=== PATIENT | female | born 1980 | race Caucasian/White ===

== ENCOUNTER → 2019-05-14 | Outpatient (CLI) | payer SELFPAY ==
--- NOTE | 2019-05-14 15:21 | RADIOLOGY REPORT (SQ) ---
EXAM DESCRIPTION: U/S OB 14+ TRNABD 1GES W/O DOP COMPLETED DATE/TIME: 05/14/2019 2:48 pm REASON FOR STUDY: Z34.82 ENCOUNTER FOR SUPRVSN OF NORMAL , SECOND TRIMESTER Z34.82 ENCOUNT ER FOR SUPRVSN OF NORMAL , SECOND TRI COMPARISON: None. TECHNIQUE: Static and Dynamic grayscale imaging performed of gravid uterus using transabdominal appr oach. Additional selected color Doppler and spectral images recorded. All stored on PACS. LIMITATIONS: None. FINDINGS: FETUSES SEEN:1 EGA: 19 weeks 4 days Calculated using BPD,FL,HC,AC documented on images. No discrepancy with clinica l dates. MENDEZ: 10/04/2019 EFW: 296+/- 44 grams PERCENTILE: Not calculated. LVP: 2.9 CM PLACENTA: POSTERIOR GRADE 1 PRESENTATION: Breech. ANATOMY: HEART RATE: 130 beats per minute. FOUR CHAMBER HEART: Visualized. THREE VESSEL CORD: Yes. CORD INSERTION: Visualized. KIDNEYS AND BLADDER: Visualized. Appear normal. STOMACH: Visualized. Appears normal. SPINE: Normal as visualized. BRAIN AND LATERAL VENTRICLES: Visualized. Appear normal. OTHER: No other significant finding. MATERNAL ADNEXA: Maternal ovaries not visualized. CERVICAL LENGTH: 3.2 cm. Closed. OTHER: No other significant finding. IMPRESSION: LIVING INTRAUTERINE . ESTIMATED GESTATIONAL AGE 19 weeks 4 days. NO VISUALIZED ANOMALIES. Trimester of : Second trimester - 13 weeks 1 day to 27 weeks 6 days. TECHNICAL DOCUMENTATION: JOB ID: [id number] [employer]- All Rights Reserved Reading location - IP/workstation name: [email or web address]
== END ==
LOC: RAD 13:41
PROVIDERS: ATTEND Midwife
DX: Z34.82 Encounter for supervision of other normal pregnancy, second trimester (principal)
CPT/HCPCS: 76805

== ENCOUNTER 2019-05-18 20:17 | Outpatient (CLI) | payer MEDICAID ==
[2019-05-18 21:22] LABS: AMORPHOUS SEDIMENT,URINE TRACE /HPF; APPEARANCE,URINE CLOUDY; BILIRUBIN,URINE NEGATIVE (NEGATIVE); COLOR,URINE AMBER; GLUCOSE, URINE NEGATIVE (NEGATIVE); KETONES,URINE NEGATIVE (NEGATIVE); LEUKOCYTE ESTERASE,URINE NEGATIVE (NEGATIVE); NITRITE,URINE NEGATIVE (NEGATIVE); PROTEIN,URINE NEGATIVE (NEGATIVE); URINE SPECIFIC GRAVITY 1.025; UROBILINOGEN,URINE NEGATIVE mg/dL (<2.0)
[2019-05-18 21:32] LABS: URINE AMPHETAMINES SCREEN NEGATIVE; URINE BARBITURATES SCREEN NEGATIVE; URINE COCAINE SCREEN NEGATIVE; URINE MARIJUANA (THC) SCREEN NEGATIVE; URINE METHADONE SCREEN NEGATIVE; URINE PHENCYCLIDINE SCREEN NEGATIVE
[2019-05-18 21:37] LABS: URINE BENZODIAZEPINES SCREEN UNCONFIRMED POSITIVE
[2019-05-18] MEDS ORDERED: ACETAMINOPHEN 325 MG TABLET PO ONE (21:50)
[2019-05-18] MEDS ORDERED: ACETAMINOPHEN 325 MG TABLET ONE (21:52)
== END 2019-05-18 22:06 | disposition home or self-care (01) ==
LOC: LC 20:17
PROVIDERS: ATTEND Obstetrics & Gynecology
DX: O47.1 False labor at or after 37 completed weeks of gestation (principal); O26.892 Other specified pregnancy related conditions, second trimester; E86.0 Dehydration; R51 Headache; H92.09 Otalgia, unspecified ear; R42 Dizziness and giddiness; M54.2 Cervicalgia; R07.0 Pain in throat; Z3A.20 20 weeks gestation of pregnancy
CPT/HCPCS: 81001; 80307; G0480 ×2; J3490

== ENCOUNTER 2019-07-05 13:08 | Outpatient (CLI) | payer MEDICAID ==
[2019-07-05 13:37] LABS: APPEARANCE,URINE CLEAR; BILIRUBIN,URINE NEGATIVE (NEGATIVE); COLOR,URINE STRAW; GLUCOSE, URINE NEGATIVE (NEGATIVE); KETONES,URINE NEGATIVE (NEGATIVE); LEUKOCYTE ESTERASE,URINE NEGATIVE (NEGATIVE); NITRITE,URINE NEGATIVE (NEGATIVE); PROTEIN,URINE NEGATIVE (NEGATIVE); UROBILINOGEN,URINE NEGATIVE mg/dL (<2.0)
[2019-07-05 13:39] LABS: AMORPHOUS SEDIMENT,URINE TRACE /HPF
[2019-07-05 13:41] LABS: URINE SPECIFIC GRAVITY 1.014
[2019-07-05 13:54] LABS: URINE AMPHETAMINES SCREEN NEGATIVE; URINE BARBITURATES SCREEN NEGATIVE; URINE BENZODIAZEPINES SCREEN NEGATIVE; URINE COCAINE SCREEN NEGATIVE; URINE MARIJUANA (THC) SCREEN NEGATIVE; URINE METHADONE SCREEN NEGATIVE; URINE PHENCYCLIDINE SCREEN NEGATIVE
[2019-07-05] MEDS ORDERED: METOCLOPRAMIDE HCL ORAL SOLN 10 MG/10 ML UDCUP PO ONE (14:47)
[2019-07-05] MEDS ORDERED: LIDOCAINE 2% VISCOUS SOLN 20 ML UDCUP PO ONE (14:47)
[2019-07-05] MEDS ORDERED: MAG HYDROX/AL HYDROX/SIMETH SUSP 30 ML UDCUP PO ONE (14:47)
--- NOTE | 2019-07-05 15:09 | RADIOLOGY REPORT (SQ) ---
EXAM DESCRIPTION: U/S ABDOMEN LIMITED W/O DOP COMPLETED DATE/TIME: 07/05/2019 2:43 pm REASON FOR STUDY: Assess gallbladder, Midsternal pain COMPARISON: None. TECHNIQUE: Dynamic and static grayscale images acquired of the abdomen and recorded on PACS. Additio nal selected color Doppler and spectral images recorded. LIMITATIONS: None. FINDINGS: PANCREAS: No masses. Visualized pancreatic duct normal caliber. LIVER: No masses. Echotexture normal. LIVER VASCULATURE: Normal directional flow of the main portal vein and hepatic veins. GALLBLADDER: Contracted. No shadowing stones. Normal wall thickness. No pericholecystic fluid. ULTRASOUND-DETECTED HARRIS'S SIGN: Negative. INTRAHEPATIC DUCTS AND COMMON DUCT: CBD and intrahepatic ducts normal caliber. No filling defects. INFERIOR VENA CAVA: Normal flow. AORTA: No aneurysm identified. RIGHT KIDNEY: Normal size. Normal echogenicity. No solid or suspicious masses. No hydronephros is. No calcifications. PERITONEAL AND RIGHT PLEURAL SPACE: No ascites or effusions. OTHER: No other significant findings. IMPRESSION: NO ACUTE FINDINGS. TECHNICAL DOCUMENTATION: JOB ID: [id number] [employer]- All Rights Reserved Reading location - IP/workstation name: [email or web address]
[2019-07-05] MEDS ORDERED: MAG HYDROX/AL HYDROX/SIMETH SUSP 30 ML UDCUP ONE (15:36)
== END 2019-07-05 15:58 | disposition home or self-care (01) ==
LOC: LC 13:08
PROVIDERS: ATTEND Obstetrics & Gynecology
PROC: 4A1HXCZ Monitoring of Products of Conception, Cardiac Rate, External Approach (ICD-10-PCS; principal; 2019-07-05)
DX: Z34.92 Encounter for supervision of normal pregnancy, unspecified, second trimester (principal)
CPT/HCPCS: 81001; 80307; 76705; 59899; J3490 ×3

== ENCOUNTER 2019-09-25 22:37 | Outpatient (CLI) | payer MEDICAID ==
[2019-09-25 23:14] LABS: APPEARANCE,URINE CLEAR; BILIRUBIN,URINE NEGATIVE (NEGATIVE); COLOR,URINE YELLOW; GLUCOSE, URINE NEGATIVE (NEGATIVE); KETONES,URINE NEGATIVE (NEGATIVE); LEUKOCYTE ESTERASE,URINE NEGATIVE (NEGATIVE); NITRITE,URINE NEGATIVE (NEGATIVE); PROTEIN,URINE 30 mg/dL (NEGATIVE); URINE SPECIFIC GRAVITY 1.024
[2019-09-25 23:31] LABS: URINE AMPHETAMINES SCREEN NEGATIVE; URINE BARBITURATES SCREEN NEGATIVE; URINE BENZODIAZEPINES SCREEN NEGATIVE; URINE COCAINE SCREEN NEGATIVE; URINE MARIJUANA (THC) SCREEN NEGATIVE; URINE METHADONE SCREEN NEGATIVE; URINE PHENCYCLIDINE SCREEN NEGATIVE
--- NOTE | 2019-09-26 00:37 | Non Stress Test Report ---
Non Stress Test Datetime Report Generated by CPN: 09/26/2019 00:37 DEMOGRAPHIC EGA NST: 38.6 INDICATION Indication for Study (NST) Other: LC MONITORING Monitor Explained: Monitor Explained; Test Explained; Patient Verbalized Understanding Time on Monitor: 09/26/2019 22:52 Time off Monitor: 09/26/2019 23:15 NST Duration: 23 NST INTERVENTIONS NST Interventions: PO Hydration Physician Notified NST: Dr. Villa BABY A: [id number] BABY A Movement : Present Contraction Frequency : 3-5 FHR Baseline : 135 Accelerations : 15X15 Decelerations : None Variability : Moderate 6-25bpm NST Review: Meets Criteria for Reactive NST NST Review and Verified By : Laura Banks RN Results: Reactive NST REPORT Report Trigger: Send Report
== END 2019-09-26 00:32 | disposition home or self-care (01) ==
LOC: LC 22:37
PROVIDERS: ATTEND Obstetrics & Gynecology Gynecology
PROC: 4A1HXCZ Monitoring of Products of Conception, Cardiac Rate, External Approach (ICD-10-PCS; principal; 2019-09-25)
DX: O09.523 Supervision of elderly multigravida, third trimester (principal); O99.333 Smoking (tobacco) complicating pregnancy, third trimester; F17.210 Nicotine dependence, cigarettes, uncomplicated; Z3A.38 38 weeks gestation of pregnancy
CPT/HCPCS: 59025; 80307; 81005

== ENCOUNTER 2019-10-09 19:03 | Outpatient (CLI) | payer MEDICAID ==
[2019-10-09 19:56] LABS: APPEARANCE,URINE CLEAR; BILIRUBIN,URINE NEGATIVE (NEGATIVE); COLOR,URINE YELLOW; GLUCOSE, URINE 150 mg/dL (NEGATIVE); KETONES,URINE NEGATIVE (NEGATIVE); LEUKOCYTE ESTERASE,URINE NEGATIVE (NEGATIVE); NITRITE,URINE NEGATIVE (NEGATIVE); PROTEIN,URINE NEGATIVE (NEGATIVE); URINE SPECIFIC GRAVITY 1.014; UROBILINOGEN,URINE NEGATIVE mg/dL (<2.0)
[2019-10-09 20:10] LABS: URINE AMPHETAMINES SCREEN NEGATIVE; URINE BARBITURATES SCREEN NEGATIVE; URINE BENZODIAZEPINES SCREEN NEGATIVE; URINE COCAINE SCREEN NEGATIVE; URINE METHADONE SCREEN NEGATIVE; URINE PHENCYCLIDINE SCREEN NEGATIVE
[2019-10-09 20:16] LABS: URINE MARIJUANA (THC) SCREEN UNCONFIRMED POSITIVE
== END 2019-10-09 22:26 | disposition home or self-care (01) ==
LOC: LC 19:03
PROVIDERS: ATTEND Student in an Organized Health Care Education/Training Program
PROC: 4A1HXCZ Monitoring of Products of Conception, Cardiac Rate, External Approach (ICD-10-PCS; principal; 2019-10-09)
DX: O48.0 Post-term pregnancy (principal); O09.523 Supervision of elderly multigravida, third trimester; Z3A.40 40 weeks gestation of pregnancy
CPT/HCPCS: 59025; 81005; 80307; 84112; G0480 ×2; 80349

== ENCOUNTER 2019-10-10 06:07 | Inpatient (IN) | payer MEDICAID ==
--- NOTE | 2019-10-10 06:09 | Non Stress Test Report ---
Non Stress Test Datetime Report Generated by CPN: 10/10/2019 06:09 DEMOGRAPHIC EGA NST: 40.5 INDICATION Indication for Study (NST) Other: labor check URINE RESULTS Urine Protein, NST: Negative Urine Ketones - NST: Negative Urine Glucose - NST: Negative Urine Blood - NST: Positive MONITORING Monitor Explained: Monitor Explained; Test Explained; Patient Verbalized Understanding Time on Monitor: 10/09/2019 19:15 Time off Monitor: 10/09/2019 19:40 NST Duration: 25 NST INTERVENTIONS NST Interventions: PO Hydration Physician Notified NST: Dr. Hudson BABY A: [id number] BABY A Movement : Present Contraction Frequency : irregular FHR Baseline : 145 Accelerations : 15X15 Decelerations : None Variability : Moderate 6-25bpm NST Review: Meets Criteria for Reactive NST NST Review and Verified By : willi Yeung rn NST Results: Reactive NST REPORT Report Trigger: Send Report
[2019-10-10] MEDS ORDERED: OXYTOCIN/NORMAL SALINE 20 UNIT/1,000 ML RTUINJ IV PRN ×2 (06:16→15:07)
[2019-10-10] MEDS ORDERED: RINGERS SOLUTION,LACTATED 300 ML IV ONE (06:16)
[2019-10-10] MEDS: RINGERS SOLUTION,LACTATED 1,000 ML IV PRN ×2 (06:30→11:44)
[2019-10-10] MEDS ORDERED: MISOPROSTOL 0.2 MG TABLET ONE (06:32)
[2019-10-10] MEDS ORDERED: LIDOCAINE 1% INJ-PF (10 MG/ML) 30 ML SDV ONE (06:32)
[2019-10-10] MEDS ORDERED: OXYTOCIN/NORMAL SALINE 20 UNIT/1,000 ML RTUINJ ONE (06:32)
[2019-10-10] MEDS ORDERED: OXYTOCIN 10 UNIT/ML VIAL ONE (06:32)
[2019-10-10 07:22] LABS: ABSOLUTE EOSINOPHILS # (AUTO) 0.1 10^3/uL (0.0-0.6); ABSOLUTE LYMPHOCYTES (AUTO) 1.7 10^3/uL (0.5-4.7); ABSOLUTE MONOCYTES (AUTO) 0.9 10^3/uL (0.1-1.4); ABSOLUTE NEUT (AUTO) 7.6 10^3/uL (1.7-8.2); BASOPHILS % (AUTO) 0.4 % (0-2); EOSINOPHILS % (AUTO) 0.7 % (0-6); HEMATOCRIT 35.4 % (36.0-47.0); HEMOGLOBIN 12.2 g/dL (12.0-15.5); LYMPHOCYTES % (AUTO) 16.5 % (13-45); MEAN CORPUSCULAR HEMOGLOBIN 32.8 pg (27.0-33.4); MEAN CORPUSCULAR HGB CONC 34.4 g/dL (32.0-36.0); MEAN CORPUSCULAR VOLUME 95 fl (80-97); MONOCYTES % (AUTO) 8.9 % (3-13); PLATELET COUNT 146 10^3/uL (150-450); RED BLOOD COUNT 3.72 10^6/uL (3.72-5.28); RED CELL DISTRIBUTION WIDTH 12.5 % (11.5-14.0); SEGMENTED NEUTROPHILS % (AUTO) 73.5 % (42-78); TOTAL CELLS COUNTED % (AUTO) 100 %; WHITE BLOOD COUNT 10.4 10^3/uL (4.0-10.5)
[2019-10-10 07:30] LABS: APPEARANCE,URINE CLOUDY; BILIRUBIN,URINE NEGATIVE (NEGATIVE); COLOR,URINE YELLOW; GLUCOSE, URINE 50 mg/dL (NEGATIVE); KETONES,URINE NEGATIVE (NEGATIVE); LEUKOCYTE ESTERASE,URINE TRACE (NEGATIVE); NITRITE,URINE NEGATIVE (NEGATIVE); PROTEIN,URINE NEGATIVE (NEGATIVE); URINE SPECIFIC GRAVITY 1.015; UROBILINOGEN,URINE NEGATIVE mg/dL (<2.0)
[2019-10-10 07:46] LABS: URINE AMPHETAMINES SCREEN NEGATIVE; URINE BARBITURATES SCREEN NEGATIVE; URINE BENZODIAZEPINES SCREEN NEGATIVE; URINE COCAINE SCREEN NEGATIVE; URINE METHADONE SCREEN NEGATIVE; URINE PHENCYCLIDINE SCREEN NEGATIVE
[2019-10-10 07:59] LABS: URINE MARIJUANA (THC) SCREEN UNCONFIRMED POSITIVE
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
[2019-10-10] MEDS ORDERED: NALBUPHINE HCL INJ 10 MG/1 ML AMPULE ONE (08:44)
[2019-10-10] MEDS ORDERED: EPHEDRINE SULFATE INJ 50 MG/1 ML AMPULE ONE (11:20)
[2019-10-10] MEDS ORDERED: FENTANYL CITRATE INJ/PF 100 MCG/2 ML AMPUL ONE (11:20)
[2019-10-10] MEDS ORDERED: PHENYLEPHRINE HCL INJ/PF 10 MG/1 ML SDV ONE ×2 (11:20→12:40)
[2019-10-10] MEDS ORDERED: FENTANYL/BUPIVACAINE/NS/PF 300 MCG/150 ML RTUINJ EPI ONE (11:21)
[2019-10-10] MEDS ORDERED: BUPIVACAINE HCL 0.25 % INJ/PF (2.5 MG/1 ML) 30 ML VIAL ONE (11:21)
[2019-10-10] MEDS ORDERED: ZOLPIDEM TARTRATE 5 MG TABLET PO PRN (15:07)
[2019-10-10] MEDS ORDERED: BENZOCAINE/MENTHOL AEROSOL SPRAY 56 ML TOP PRN (15:07)
[2019-10-10] MEDS ORDERED: MEASLES,MUMPS&RUBELLA VACC/PF 0.5 ML VIAL SUBCUT PRN (15:07)
[2019-10-10] MEDS ORDERED: PROMETHAZINE HCL 25 MG SUPP.RECT PR PRN (15:07)
[2019-10-10] MEDS ORDERED: ACETAMINOPHEN 650 MG SUPP.RECT PR PRN (15:07)
[2019-10-10] MEDS ORDERED: PROMETHAZINE HCL INJ 25 MG/1 ML VIAL IV PRN (15:07)
[2019-10-10] MEDS ORDERED: PROMETHAZINE HCL 25 MG TABLET PO PRN (15:07)
[2019-10-10] MEDS ORDERED: MAGNESIUM HYDROXIDE SUSP 30 ML UDCUP PO PRN (15:07)
[2019-10-10] MEDS ORDERED: ACETAMINOPHEN WITH CODEINE #3 TABLET PO PRN (15:07)
[2019-10-10] MEDS ORDERED: DIPH/PERTUSS(ACELL)/TETANUS VAC/PF 0.5 ML SYR (>=10YO) IM PRN (15:07)
[2019-10-10] MEDS ORDERED: PSEUDOEPHEDRINE HCL 30 MG TABLET PO PRN (15:07)
[2019-10-10] MEDS ORDERED: NA PHOS,M-B/NA PHOS,DI-BA (ADULT) 133 ML ENEMA PR PRN (15:07)
[2019-10-10] MEDS ORDERED: DIPHENHYDRAMINE HCL 25 MG CAPSULE PO PRN (15:07)
[2019-10-10] MEDS ORDERED: GLYCERIN/WITCH HAZEL LEAF 1 EACH MED..WIPE TP PRN (15:07)
[2019-10-10] MEDS ORDERED: DIBUCAINE 1% OINTMENT 28 GM TP PRN (15:07)
[2019-10-10] MEDS ORDERED: ACETAMINOPHEN WITH CODEINE #3 TABLET ONE (15:08)
--- NOTE | 2019-10-10 15:29 | Warning Signs in Babies ---
VOD Warning Signs Datetime Report Generated by N: 10/10/2019 15:28 VOD#608 -Warning Signs in Babies: Viewed with Parent(s)/Family (10/10/2019 15:00:Diandra Mclean RN)
[2019-10-10] MEDS: DOCUSATE SODIUM 100 MG CAPSULE PO SCH (18:45)
[2019-10-10] MEDS: FERROUS SULFATE 325 MG TABLET PO SCH (18:45)
[2019-10-10] MEDS: ACETAMINOPHEN WITH CODEINE #3 TABLET PO PRN (19:33)
[2019-10-10] MEDS: IBUPROFEN 800 MG TABLET PO SCH (21:31)
[2019-10-10] MEDS: FAMOTIDINE 20 MG TABLET PO SCH (21:32)
[2019-10-11] MEDS: IBUPROFEN 800 MG TABLET PO SCH ×3 (05:46→21:52)
[2019-10-11 07:35] LABS: HEMATOCRIT 33.4 % (36.0-47.0); HEMOGLOBIN 11.5 g/dL (12.0-15.5); MEAN CORPUSCULAR HEMOGLOBIN 32.7 pg (27.0-33.4); MEAN CORPUSCULAR HGB CONC 34.4 g/dL (32.0-36.0); MEAN CORPUSCULAR VOLUME 95 fl (80-97); PLATELET COUNT 133 10^3/uL (150-450); RED BLOOD COUNT 3.51 10^6/uL (3.72-5.28); RED CELL DISTRIBUTION WIDTH 12.9 % (11.5-14.0); WHITE BLOOD COUNT 13.9 10^3/uL (4.0-10.5)
[2019-10-11] MEDS: ACETAMINOPHEN WITH CODEINE #3 TABLET PO PRN ×2 (08:42→16:40)
[2019-10-11] MEDS: FAMOTIDINE 20 MG TABLET PO SCH ×2 (10:34→21:52)
[2019-10-11] MEDS: PRENATAL VITAMIN W DHA CAPSULE PO SCH (10:34)
[2019-10-11] MEDS: DOCUSATE SODIUM 100 MG CAPSULE PO SCH ×2 (10:34→17:57)
[2019-10-11] MEDS: FERROUS SULFATE 325 MG TABLET PO SCH ×2 (10:34→17:57)
[2019-10-11] MEDS: SENNOSIDES/DOCUSATE 8.6-50 MG 1 EACH TABLET PO SCH (10:34)
--- NOTE | 2019-10-11 10:47 | PDOC PROGRESS REPORT ---
Subjective-OB Progress Note for:: 10/11/19 - PP Day #1, doing well, , O negative, needs Rhogam prior to d/c home. breast feeding Physical Exam (OB) Vital Signs: Temp Pulse Resp BP Pulse Ox 97.6 F 65 14 127/81 H 99 10/11/19 07:26 10/11/19 07:26 10/11/19 07:26 10/11/19 07:26 10/11/19 07:26 Intake & Output 10/10/19 10/11/19 10/12/19 06:59 06:59 06:59 Intake Total 954 Balance 954 Weight 85.7 kg - General General Appearance: Appears well, Alert - PIH/Pre-Eclampsia Clonus: Negative Headache: Absent Epigastric Pain: No Visual Changes: No - Lochia Lochia Amount: Scant < 10 ml Lochia Color: Rubra/Red - Abdomen Description: Tender, Soft Hernia Present: No Fundal Description: Firm Fundal Height: u/u - u/2 - Respiratory Respiratory Status: No respiratory distress - Abdominal Distension: No distension Tenderness: Nontender - Genitourinary Genitourinary Note: voiding - Extremities Upper extremity: Normal inspection Lower extremities: Normal inspection - Neurological Cognition: Normal Orientation: AAOx4 - Psychological Associated symptoms: Normal affect, Normal mood - Skin Skin Temperature: Warm Skin Moisture: Dry Objective-Diagnostic Laboratory: 10/11/19 07:11 10/11/19 10/11/19 07:11 07:11 WBC 13.9 H RBC 3.51 L Hgb 11.5 L Hct 33.4 L MCV 95 MCH 32.7 MCHC 34.4 RDW 12.9 Plt Count 133 L Blood Type O NEGATIVE Assessment and Plan(PN) - Assessment and Plan (1) (normal spontaneous vaginal delivery) Is this a current diagnosis for this admission?: Yes (2) Rh negative status during Qualifiers: Trimester: third trimester Qualified Code(s): O26.893 - Other specified related conditions, third trimester; Z67.91 - Unspecified blood type, Rh negative Is this a current diagnosis for this admission?: Yes (3) Hx of cannabis abuse Is this a current diagnosis for this admission?: Yes (4) Advanced maternal age (AMA) in Is this a current diagnosis for this admission?: Yes (5) Gestational thrombocytopenia Qualifiers: Trimester: third trimester Qualified Code(s): O99.113 - Other diseases of the blood and blood-forming organs and certain disorders involving the immune mechanism complicating , third trimester; D69.6 - Thrombocytopenia, unspecified Is this a current diagnosis for this admission?: Yes (6) Poor social situation Is this a current diagnosis for this admission?: Yes Plan:: ambulation, will get capacity planner involved. routine PP orders - Time Spent with Patient Time with patient: Less than 15 minutes Medications reviewed and adjusted accordingly: Yes - Disposition Anticipated Discharge: Home Within: within 24 hours
[2019-10-12] MEDS: ACETAMINOPHEN WITH CODEINE #3 TABLET PO PRN (01:24)
[2019-10-12] MEDS: IBUPROFEN 800 MG TABLET PO SCH ×2 (08:06→14:34)
[2019-10-12] MEDS: DOCUSATE SODIUM 100 MG CAPSULE PO SCH ×2 (09:22→17:31)
[2019-10-12] MEDS: FERROUS SULFATE 325 MG TABLET PO SCH ×2 (09:22→17:31)
[2019-10-12] MEDS: SENNOSIDES/DOCUSATE 8.6-50 MG 1 EACH TABLET PO SCH (09:22)
[2019-10-12] MEDS: FAMOTIDINE 20 MG TABLET PO SCH (09:22)
[2019-10-12] MEDS: PRENATAL VITAMIN W DHA CAPSULE PO SCH (09:22)
--- NOTE | 2019-10-12 09:29 | PDOC DISCHARGE SUMMARY ---
Impression - Admit/DC Date/PCP Admission Date/Primary Care Provider: 10/10/19 06:07 CELESTINO PATE MD Discharge Date: 10/12/19 - Discharge Diagnosis (1) Advanced maternal age (AMA) in Is this a current diagnosis for this admission?: Yes (2) Gestational thrombocytopenia Is this a current diagnosis for this admission?: Yes (3) Hx of cannabis abuse Is this a current diagnosis for this admission?: Yes (4) (normal spontaneous vaginal delivery) Is this a current diagnosis for this admission?: Yes (5) Poor social situation Is this a current diagnosis for this admission?: Yes (6) Rh negative status during Is this a current diagnosis for this admission?: Yes - Additional Information Resuscitation Status: Full Code Discharge Diet: Regular Discharge Activity: Balance Activity w/Rest, Pelvic Rest Referrals: CELESTINO PATE MD [Primary Care Provider] - Prescriptions: Ibuprofen [Motrin 800 mg Tablet] 800 mg PO Q8HP PRN #60 tablet PRN Reason: Home Medications: Prenat 115/Iron Fum/Folic/Dss [ 19 Tablet] 1 tab PO DAILY 10/05/19 Ibuprofen [Motrin 800 mg Tablet] 800 mg PO Q8HP PRN #60 tablet 10/12/19 Results Laboratory Results: WBC 13.9 10^3/uL (4.0-10.5) H 10/11/19 07:11 RBC 3.51 10^6/uL (3.72-5.28) L 10/11/19 07:11 Hgb 11.5 g/dL (12.0-15.5) L 10/11/19 07:11 Hct 33.4 % (36.0-47.0) L 10/11/19 07:11 MCV 95 fl (80-97) 10/11/19 07:11 MCH 32.7 pg (27.0-33.4) 10/11/19 07:11 MCHC 34.4 g/dL (32.0-36.0) 10/11/19 07:11 RDW 12.9 % (11.5-14.0) 10/11/19 07:11 Plt Count 133 10^3/uL (150-450) L 10/11/19 07:11 Lymph % (Auto) 16.5 % (13-45) 10/10/19 06:57 [place] % (Auto) 8.9 % (3-13) 10/10/19 06:57 Eos % (Auto) 0.7 % (0-6) 10/10/19 06:57 Baso % (Auto) 0.4 % (0-2) 10/10/19 06:57 Absolute Neuts (auto) 7.6 10^3/uL (1.7-8.2) 10/10/19 06:57 Absolute Lymphs (auto) 1.7 10^3/uL (0.5-4.7) 10/10/19 06:57 Absolute Monos (auto) 0.9 10^3/uL (0.1-1.4) 10/10/19 06:57 Absolute Eos (auto) 0.1 10^3/uL (0.0-0.6) 10/10/19 06:57 Absolute Basos (auto) 0.0 10^3/uL (0.0-0.2) 10/10/19 06:57 Seg Neutrophils % 73.5 % (42-78) 10/10/19 06:57 Urine Color YELLOW 10/10/19 06:21 Urine Appearance CLOUDY 10/10/19 06:21 Urine pH 7.0 (5.0-9.0) 10/10/19 06:21 Ur Specific [place] 1.015 10/10/19 06:21 Urine Protein NEGATIVE mg/dL (NEGATIVE) 10/10/19 06:21 Urine Glucose (UA) 50 mg/dL (NEGATIVE) H 10/10/19 06:21 Urine Ketones NEGATIVE mg/dL (NEGATIVE) 10/10/19 06:21 Urine Blood LARGE (NEGATIVE) H 10/10/19 06:21 Urine Nitrite NEGATIVE (NEGATIVE) 10/10/19 06:21 Urine Bilirubin NEGATIVE (NEGATIVE) 10/10/19 06:21 Urine Urobilinogen NEGATIVE mg/dL (<2.0) 10/10/19 06:21 Ur Leukocyte Esterase TRACE (NEGATIVE) H 10/10/19 06:21 Urine Ascorbic Acid NEGATIVE (NEGATIVE) 10/10/19 06:21 Urine Opiates Screen NEGATIVE 10/10/19 06:21 Urine Methadone Screen NEGATIVE 10/10/19 06:21 Ur Barbiturates Screen NEGATIVE 10/10/19 06:21 Ur Phencyclidine Scrn NEGATIVE 10/10/19 06:21 Ur Amphetamines Screen NEGATIVE 10/10/19 06:21 U Benzodiazepines Scrn NEGATIVE 10/10/19 06:21 Urine Cocaine Screen NEGATIVE 10/10/19 06:21 U Marijuana (THC) Screen UNCONFIRMED POSITIVE 10/10/19 06:21 RPR NONREACTIVE (NONREACTIVE) 10/10/19 06:57 Blood Type O NEGATIVE 10/11/19 07:11 Antibody Screen NEGATIVE 10/10/19 06:57 Screen NEGATIVE 10/11/19 07:11
[2019-10-12 11:35] VITALS: BP 130/74
--- NOTE | 2019-10-22 14:47 | Delivery Summary ---
Del Sum A-C Datetime Report Generated by CPN: 10/22/2019 14:46 DELIVERY PERSONNEL DELIVERY PERSONNEL: [id number] Delivery Doctor:: Alfonso Villa MD Labor and Delivery Nurse:: Leann Bazzi RNmail superintendent Nurse:: Diandra Mclean RN Work Order Sorting Clerk/REVIEW COORDINATOR: Kim Ochoa, ST Additional Personnel: : Claudia Castaneda RN MATERNAL INFORMATION Delivery Anesthesia: Epidural Medications After Delivery: Pitocin Bolus-Please Comment; Cytotec 1000mcg Per Rectum/Vagina Meds After Delivery Comment: Pitocin 20U/ 1000mL Delivery QBL: 100 Maternal Complications: None LABOR SUMMARY EDC: 10/04/2019 00:00 No. Babies in Womb: 1 Attempted: No LABOR INFORMATION Reason for Induction: Post Dates Onset of Labor: 10/10/2019 10:08 Complete Dilatation: 10/10/2019 14:43 Oxytocin: Induction Group B Beta Strep: Negative MEMBRANES Membranes Rupture Method: Artificial Rupture of Membranes: 10/10/2019 10:08 Length of Rupture (hr): 4.80 Amniotic Fluid Color: Clear Amniotic Fluid Amount: Small Amniotic Fluid Odor: None STAGES OF LABOR Stage 1 hr: 4 Stage 1 min: 35 Stage 2 hr: 0 Stage 2 min: 13 Stage 3 hr: 0 Stage 3 min: 4 Total Time in Labor hr: 4 Total Time in Labor min: 52 VAGINAL DELIVERY Episiotomy: None Laceration #1: None Laceration Extension #1: N/A BABY A INFORMATION Delivery Date/Time: 10/10/2019 14:56 Method of Delivery: Vaginal Method of Delivery: Vaginal Born in Route : Yes : N/A Forceps: N/A Vacuum Extraction: N/A Shoulder Dystocia : No PRESENTATION/POSITION BABY A Presentation: Cephalic Cephalic Presentation: Vertex Vertex Position: Left Occipital Anterior PLACENTA INFORMATION BABY A Placenta Delivery Time : 10/10/2019 15:00 Placenta Method of Delivery: Spontaneous Placenta Status: Delivered SCORES BABY A Heart Rate 1 min: >100 bpm Resp Effort 1 min: Slow, Irregular Reflex Irritability 1 min: Cough or Sneeze or Pulls Away Muscle Tone 1 min: Some Flexion of Extremities Color 1 min: Blue/Pale Resuscitation Effort 1 min: Tactile Stimulation SCORE 1 MIN: 6 Heart Rate 5 min: >100 bpm Resp Effort 5 min: Slow, Irregular Reflex Irritability 5 min: Cough or Sneeze or Pulls Away Muscle Tone 5 min: Active Motion Color 5 min: Blue/Pale Resuscitation Effort 5 min: Tactile Stimulation SCORE 5 MIN: 7 INFORMATION BABY A Gestational Age at Delivery: 40.6 Gestational Status: Full Term- 39- 40.6 Weeks Outcome : Liveborn Condition : Stable Infant Sex: Female Infant Sex: Female IDENTIFICATION BABY A Infant Verification Date/Time: 10/10/2019 15:42 ID Band Number: [id number] Mother's Name Verified: Yes Infant RN Verifying Infant: Priscilla Bazzi HUSSEIN, Priscilla Mclean RN WEIGHT/LENGTH BABY A Birthweight (gm): 3549 Infant Weight (lb): 7 Weight (oz): 13 Length (in): 20.50 Infant Length (cm): 52.07 CORD INFORMATION BABY A Nuchal Cord : Around Neck x1, Tight Cord Blood Taken: Yes-For Eval (Mom's Blood Type - or O+) Suction: None ASSESSMENT BABY A Complications: None Physical Findings at Delivery: Within Normal Limits Respirations: Appears Normal Transferred To: Remains with Mother BABY B INFORMATION : N/A SIGNATURES Signature: with User ID: [email or web address]
== END 2019-10-12 18:30 | disposition home or self-care (01) | DRG 806 ==
LOC: LR 06:07 → 2S 17:53
PROVIDERS: ADMIT Student in an Organized Health Care Education/Training Program; ATTEND Student in an Organized Health Care Education/Training Program
PROC: 10E0XZZ Delivery of Products of Conception, External Approach (ICD-10-PCS; principal; 2019-10-10)
PROC: 3E0234Z Introduction of Serum, Toxoid and Vaccine into Muscle, Percutaneous Approach (ICD-10-PCS; 2019-10-12)
DX: O48.0 Post-term pregnancy (principal); O99.12 Other diseases of the blood and blood-forming organs and certain disorders involving the immune mechanism complicating childbirth; Z37.0 Single live birth; Z3A.40 40 weeks gestation of pregnancy; O69.1XX0 Labor and delivery complicated by cord around neck, with compression, not applicable or unspecified; O24.420 Gestational diabetes mellitus in childbirth, diet controlled; O99.334 Smoking (tobacco) complicating childbirth; D69.6 Thrombocytopenia, unspecified; O99.344 Other mental disorders complicating childbirth; O26.893 Other specified pregnancy related conditions, third trimester; O9A.32 Physical abuse complicating childbirth; F32.9 Major depressive disorder, single episode, unspecified; F43.10 Post-traumatic stress disorder, unspecified; F17.210 Nicotine dependence, cigarettes, uncomplicated; Z67.41 Type O blood, Rh negative; Z59.8 Other problems related to housing and economic circumstances
CPT/HCPCS: 36415; 80307; 81005; 85025; 85027; 85461; 86592; 86850; 86900; 86901; J2300; J2370; J2590; J2790; J3010; J3490

== ENCOUNTER 2019-12-17 05:32 | Day surgery (SDC) | payer MEDICAID ==
[2019-12-14 11:17] LABS: HEMATOCRIT 40.7 % (36.0-47.0); HEMOGLOBIN 13.7 g/dL (12.0-15.5); MEAN CORPUSCULAR HEMOGLOBIN 32.1 pg (27.0-33.4); MEAN CORPUSCULAR HGB CONC 33.7 g/dL (32.0-36.0); MEAN CORPUSCULAR VOLUME 95 fl (80-97); PLATELET COUNT 180 10^3/uL (150-450); RED BLOOD COUNT 4.27 10^6/uL (3.72-5.28); RED CELL DISTRIBUTION WIDTH 12.7 % (11.5-14.0); WHITE BLOOD COUNT 6.8 10^3/uL (4.0-10.5)
[2019-12-14 11:22] LABS: APPEARANCE,URINE SLIGHTLY-CLOUDY; BILIRUBIN,URINE NEGATIVE (NEGATIVE); COLOR,URINE YELLOW; GLUCOSE, URINE NEGATIVE (NEGATIVE); KETONES,URINE TRACE mg/dL (NEGATIVE); LEUKOCYTE ESTERASE,URINE NEGATIVE (NEGATIVE); NITRITE,URINE NEGATIVE (NEGATIVE); PROTEIN,URINE NEGATIVE (NEGATIVE); URINE SPECIFIC GRAVITY 1.021
[~2019-12-17 05:32] MED LIST: LACTATED RINGERS 1000 ML IV PRN; LIDOCAINE 0.5% INJ-PF (5 MG/ML) 50 ML SDV SUBCUT PRN
[2019-12-17] MEDS ORDERED: FENTANYL CITRATE INJ/PF 100 MCG/2 ML AMPUL ONE (07:00)
[2019-12-17] MEDS ORDERED: LIDOCAINE 2% INJ-PF (20 MG/ML) 10 ML AMPUL ONE (07:00)
[2019-12-17] MEDS ORDERED: MIDAZOLAM 2 MG/2 ML INJ ONE (07:01)
[2019-12-17] MEDS ORDERED: PROPOFOL INJ 200 MG/20 ML VIAL IV ONE (07:01)
[2019-12-17] MEDS ORDERED: HYDROMORPHONE HCL INJ/PF 2 MG/ML AMPULE ONE (07:01)
[2019-12-17] MEDS ORDERED: ALBUTEROL SULFATE 0.083% NEB 2.5 MG/3 ML AMPUL NEB ONE (07:06)
[2019-12-17] MEDS ORDERED: BUPIVACAINE HCL 0.25 % INJ/PF (2.5 MG/1 ML) 30 ML VIAL ONE (07:11)
[2019-12-17] MEDS ORDERED: ONDANSETRON HCL INJ/PF 4 MG/2 ML SDV IV PRN (07:45)
[2019-12-17] MEDS ORDERED: DIPHENHYDRAMINE HCL 50 MG/ML VIAL IV PRN (07:45)
[2019-12-17] MEDS ORDERED: OXYCODONE-ACETAMINOPHEN 5-325 MG TABLET PO PRN ×3 (07:45→09:00)
[2019-12-17] MEDS ORDERED: PROMETHAZINE HCL INJ 25 MG/1 ML VIAL IV PRN ×2 (07:45)
[2019-12-17] MEDS ORDERED: MEPERIDINE HCL/PF INJ 25 MG/1 ML DISP.SYRIN IV PRN (07:45)
[2019-12-17] MEDS ORDERED: MORPHINE SULFATE 10 MG/ML INJ IV PRN (07:45)
[2019-12-17] MEDS ORDERED: FENTANYL CITRATE INJ/PF 100 MCG/2 ML AMPUL IV PRN ×3 (07:45)
[2019-12-17] MEDS ORDERED: SUGAMMADEX SODIUM 200 MG/2 ML SDV IV ONE (07:53)
--- NOTE | 2019-12-17 08:08 | Operative Report ---
Operative Report DATE OF SURGERY: 12/17/19 PREOPERATIVE DIAGNOSIS: Desire for sterilization POSTOPERATIVE DIAGNOSIS: Same OPERATION: Bilateral tubal occlusion Filshie clips SURGEON: FEDERICO GALLAGHER ANESTHESIA: GA ESTIMATED BLOOD LOSS: Negligible PROCEDURE: Patient placed in dorsal lithotomy position prepped draped sterile fashion. Speculum was placed cervix was visualized and grasped with a single-tooth tenaculum and Hulka tenaculum and was placed in single-tooth tenaculum was removed speculum is removed and the bladder drained with a catheter. Return to the abdomen where a subumbilical incision was made trocar was introduced with insufflation of the abdomen. Laparoscope was placed and visualization of the pelvis which appeared to be normal. Right fallopian tube was identified to the fimbria and a Filshie clip was placed on the proximal portion. The procedure was repeated on the left again noted to be identified to the fimbria are prior to and after banding. No other overt abnormalities were noted laparoscope was removed them deflated and the trocar sleeve was removed. Incision was closed with 0 Vicryl for fascia and 4-0 Vicryl subcutaneous for the skin. The Hulka tenaculum was removed and hemostasis was noted and procedure terminated she was taken to recovery room in good condition
[2019-12-17] MEDS: FENTANYL CITRATE INJ/PF 100 MCG/2 ML AMPUL ONE ×2 (08:10→08:31)
[2019-12-17] MEDS ORDERED: OXYCODONE-ACETAMINOPHEN 5-325 MG TABLET ONE (08:49)
[2019-12-17] MEDS ORDERED: ONDANSETRON HCL 8 MG TABLET PO PRN (09:00)
[2019-12-17] MEDS ORDERED: IBUPROFEN 800 MG TABLET PO SCH (10:00)
[2019-12-17 10:39] VITALS: BP 130/81
[2019-12-17] MEDS ORDERED: DEXAMETHASONE SOD PHOSPHATE INJ 4 MG/1 ML VIAL ONE (12:23)
[2019-12-17] MEDS ORDERED: KETOROLAC TROMETHAMINE 60 MG/2 ML SDV ONE (12:23)
[2019-12-17] MEDS ORDERED: GLYCOPYRROLATE 1 MG/5 ML VIAL ONE (12:23)
[2019-12-17] MEDS ORDERED: ROCURONIUM BROMIDE INJ 50 MG/5 ML VIAL IV ONE (12:23)
[2019-12-17] MEDS ORDERED: NEOSTIGMINE METHYLSULFATE 10 MG/10 ML VIAL ONE (12:23)
[2019-12-17] MEDS ORDERED: SUCCINYLCHOLINE CHLORIDE INJ 200 MG/10 ML VIAL ONE (12:23)
[2019-12-17] MEDS ORDERED: ONDANSETRON HCL INJ/PF 4 MG/2 ML SDV ONE (12:23)
== END 2019-12-17 09:50 | disposition home or self-care (01) ==
LOC: OROUT 05:32
PROVIDERS: ATTEND Obstetrics & Gynecology Gynecology
DX: Z30.2 Encounter for sterilization (principal); F17.210 Nicotine dependence, cigarettes, uncomplicated
CPT/HCPCS: 58671; 36415; 85027; 81005; 81025; 00851; J2250; J3490 ×5; J1100; J1885; J3010; J2710; J1170; J0330; J2405; J2704; 851

== ENCOUNTER 2020-02-25 15:37 | Emergency (ER) | payer MEDICAID ==
[2020-02-25 15:42] VITALS: BP 149/94
--- NOTE | 2020-02-25 16:12 | ER Document Report ---
ED Medical Screen (RME) - General Chief Complaint: Pelvic Pain Stated Complaint: PELVIC PAIN Time Seen by Provider: 02/25/20 16:03 Primary Care Provider: AFUA MICHELLE DO [Primary Care Provider] - Follow up as needed TRAVEL OUTSIDE OF THE [place] IN LAST 30 DAYS: No - HPI Notes: 02/25/20 16:08 39-year-old female 5 para 5 4 months and who is presents to the emergency room with complaints of pelvic pain pain started last night. she feels over pressure down she is for pelvic pain. reports "someone is sitting on my cervix". reports some dysuria with urination. states that she is slightly constipated, she did have a bowel movement today. Reports dull throbbing pain in her pelvic area no vaginal discharge, no vaginal bleeding. States she has not had a period due to breast-feeding. No fevers chills, nausea vomiting diarrhea. I have greeted and performed a rapid initial assessment of this patient. A comprehensive ED assessment and evaluation of the patient, analysis of test results and completion of the medical decision making process will be conducted by additional ED providers. PHYSICAL EXAMINATION: GENERAL: Well-appearing, well-nourished and in no acute distress. HEAD: Atraumatic, normocephalic. CV: s1, s2 regular LUNGS: No respiratory distress - Related Data Allergies/Adverse Reactions: No Known Allergies Allergy (Verified 02/25/20 16:03) Home Medications: PNV Past Medical History - Social History Chew tobacco use (# tins/day): No Frequency of alcohol use: None Drug Abuse: None - Past Medical History Cardiac Medical History: Denies: Hx Coronary Artery Disease, Hx Heart Attack, Hx Hypertension Pulmonary Medical History: Denies: Hx Asthma, Hx Bronchitis, Hx COPD, Hx Pneumonia Neurological Medical History: Denies: Hx Cerebrovascular Accident, Hx Seizures Renal/ Medical History: Denies: Hx Peritoneal Dialysis Musculoskeltal Medical History: Denies Hx Arthritis - Immunizations Hx Diphtheria, Pertussis, Tetanus Vaccination: Yes Physical Exam - Vital signs Vitals: Temp Pulse Resp BP Pulse Ox 98.5 F 91 16 149/94 H 100 02/25/20 15:41 02/25/20 15:41 02/25/20 15:41 02/25/20 15:41 02/25/20 15:41 Course - Vital Signs Vital signs: Temp Pulse Resp BP Pulse Ox 98.5 F 91 16 149/94 H 100 02/25/20 16:03 02/25/20 15:41 02/25/20 15:41 02/25/20 15:41 02/25/20 15:41 Doctor's Discharge - Discharge Referrals: AFUA MICHELLE DO [Primary Care Provider] - Follow up as needed
[2020-02-25 16:39] LABS: ABSOLUTE BASOPHILS # (AUTO) 0.1 10^3/uL (0.0-0.2); ABSOLUTE EOSINOPHILS # (AUTO) 0.1 10^3/uL (0.0-0.6); ABSOLUTE LYMPHOCYTES (AUTO) 1.8 10^3/uL (0.5-4.7); ABSOLUTE MONOCYTES (AUTO) 0.9 10^3/uL (0.1-1.4); ABSOLUTE NEUT (AUTO) 6.2 10^3/uL (1.7-8.2); BASOPHILS % (AUTO) 0.6 % (0-2); EOSINOPHILS % (AUTO) 1.5 % (0-6); HEMATOCRIT 43.6 % (36.0-47.0); HEMOGLOBIN 15.1 g/dL (12.0-15.5); LYMPHOCYTES % (AUTO) 19.9 % (13-45); MEAN CORPUSCULAR HEMOGLOBIN 32.7 pg (27.0-33.4); MEAN CORPUSCULAR HGB CONC 34.6 g/dL (32.0-36.0); MEAN CORPUSCULAR VOLUME 95 fl (80-97); MONOCYTES % (AUTO) 10.2 % (3-13); PLATELET COUNT 171 10^3/uL (150-450); RED CELL DISTRIBUTION WIDTH 13.1 % (11.5-14.0); SEGMENTED NEUTROPHILS % (AUTO) 67.8 % (42-78); TOTAL CELLS COUNTED % (AUTO) 100 %; WHITE BLOOD COUNT 9.2 10^3/uL (4.0-10.5)
[2020-02-25 16:43] LABS: APPEARANCE,URINE CLEAR; BILIRUBIN,URINE NEGATIVE (NEGATIVE); COLOR,URINE YELLOW; GLUCOSE, URINE NEGATIVE (NEGATIVE); KETONES,URINE NEGATIVE (NEGATIVE); LEUKOCYTE ESTERASE,URINE NEGATIVE (NEGATIVE); NITRITE,URINE NEGATIVE (NEGATIVE); PROTEIN,URINE NEGATIVE (NEGATIVE); URINE SPECIFIC GRAVITY 1.006; UROBILINOGEN,URINE NEGATIVE mg/dL (<2.0)
[2020-02-25 16:58] LABS: ALBUMIN 4.5 g/dL (3.5-5.0); ALKALINE PHOSPHATASE 79 U/L (38-126); ANION GAP 7 (5-19); ASPARTATE AMINO TRANSFERASE 20 U/L (14-36); BILIRUBIN,TOTAL 0.5 mg/dL (0.2-1.3); BLOOD UREA NITROGEN 12 mg/dL (7-20); CALCIUM 9.3 mg/dL (8.4-10.2); CARBON DIOXIDE 23 mmol/L (22-30); CHLORIDE 107 mmol/L (98-107); GLUCOSE 97 mg/dL (75-110); POTASSIUM 4.2 mmol/L (3.6-5.0); TOTAL PROTEIN 7.7 g/dL (6.3-8.2)
--- NOTE | 2020-02-25 20:08 | RADIOLOGY REPORT (SQ) ---
US PELVIS HISTORY: 39 years Female four months . Pelvic pain. COMPARISON: Unenhanced CT scan of the abdomen and pelvis of obtained the same day. Technique: Transvaginal Imaging of the pelvis was performed. Color and spectral imaging was performed. Uterus: The uterus measures 7.7 x 5.1 x 6.5 cm. The endometrium is thickened at 15 mm. No fluid in the endometrium. The cervix is closed and measures 2 cm. There is punctate air or calcifications within the endocervical canal. Right Ovary: Measures 3.2 x 2.6 x 1.9 cm and is morphologically normal.. Normal color and spectral doppler waveforms Left Ovary: Measures 5.2 x 5.6 x 4.6 cm. There is a complex predominantly hypoechoic mass present within the ovary that contains lacelike internal echoes. It measures 3.5 x 3.3 x 3.0 cm and is suggestive of a hemorrhagic cyst.. Venous flow is identified. Arterial flow is not seen in the ovary. Other: No free fluid IMPRESSION: 1. Borderline thickening of the endometrium. 2. Complex cystic mass in the left ovary which most likely is a hemorrhagic cyst. On CT scan this area was hyperdense also suggesting hemorrhage.
--- NOTE | 2020-02-25 20:15 | RADIOLOGY REPORT (SQ) ---
CLINICAL INDICATION: pelvic pain, worse with ambulation. . TECHNIQUE: Noncontrast spiral axial CT imaging was obtained of the abdomen and pelvis with multiplanar reconstructions. This exam was performed according to our departmental dose-optimization program, which includes automated exposure control, adjustment of the mA and/or kV according to patient size and/or use of iterative reconstruction techniques. COMPARISON: None. CORRELATION: None. FINDINGS: Abdomen: The lung bases are grossly clear. The heart is of normal size. No evidence of pleural or pericardial fluid. The liver is homogeneous. Tiny presumed cyst, subcentimeter, segment IV. The gallbladder is nondistended without inflammatory change. The pancreas is of grossly normal contour on this noncontrast examination. The spleen is unremarkable. The adrenals are unremarkable. The kidneys appear grossly normal without evidence of urolithiasis or hydronephrosis. There is no evidence of free air. Trace free fluid. No bulky adenopathy. Abdominal aorta is nonaneurysmal. Pelvis: The bowel is nonobstructed. The bowel is unopacified with oral contrast. Pelvic contents demonstrate a hemorrhagic cyst of the left ovary measuring approximately 5.1 cm in greatest dimension. Postsurgical change from tubal ligation is also identified. The appendix is not seen. Visualized bones demonstrate osteoarthritis. IMPRESSION: Imaging is degraded by patient motion, with resultant artifact. The best possible images were obtained. . 5.1 cm hemorrhagic cyst of the left ovary.
--- NOTE | 2020-02-26 00:07 | ER Document Report ---
Entered by DERRICK GARY SCRIBE 02/25/202000 Acting as scribe for:EDGAR COLLINS DO ED GI/ - General Chief Complaint: Pelvic Pain Stated Complaint: PELVIC PAIN Time Seen by Provider: 02/25/20 16:03 Primary Care Provider: [facility] [Provider Group] - Follow up tomorrow AFUA MICHELLE DO [NO LOCAL MD] - Follow up as needed Mode of Arrival: Ambulatory Information source: Patient Notes: This 39 year old male patient presents to the emergency department today with complaints of lower abdominal pain that began last night. Patient states her symptoms come and go and seem to be exacerbated with certain body movements such as sneezing. Patient states laying in a supine position seems to ease her pain. Patient states that she is not concerned about STDs, mentioning that she also does not think she is as she just delivered 4 months ago. Patient also complains of a headache. Patient denies urinary symptoms, concern for STDs, nausea, vomiting, or vaginal bleeding/discharge. TRAVEL OUTSIDE OF THE [place] IN LAST 30 DAYS: No - Related Data Allergies/Adverse Reactions: No Known Allergies Allergy (Verified 02/25/20 16:03) Home Medications: PNV Past Medical History - General Information source: Patient - Social History Smoking Status: Current Every Day Smoker Cigarette use (# per day): Yes Chew tobacco use (# tins/day): No Frequency of alcohol use: None Drug Abuse: None Lives with: Family Family History: Reviewed & Not Pertinent Patient has homicidal ideation: No - Medical History Medical History: Negative Surgical Hx: Negative - Immunizations Hx Diphtheria, Pertussis, Tetanus Vaccination: Yes Review of Systems - Review of Systems Constitutional: No symptoms reported EENT: No symptoms reported Cardiovascular: No symptoms reported Respiratory: No symptoms reported Gastrointestinal: See HPI, Abdominal pain. denies: Diarrhea, Nausea, Vomiting Genitourinary: denies: Discharge, Pain, Urgency, Retention Female Genitourinary: denies: , Vaginal discharge, Vaginal bleeding Musculoskeletal: No symptoms reported Skin: No symptoms reported Hematologic/Lymphatic: No symptoms reported Neurological/Psychological: See HPI, Headaches -: Yes All other systems reviewed and negative Physical Exam - Vital signs Vitals: Temp Pulse Resp BP Pulse Ox 98.5 F 91 16 149/94 H 100 02/25/20 15:41 02/25/20 15:41 02/25/20 15:41 02/25/20 15:41 02/25/20 15:41 - Notes Notes: Physical Exam: General: Alert, appears well. HEENT: Normocephalic. Atraumatic. PERRL. Extraocular movements intact. Oropharynx clear. Neck: Supple. Non-tender. Respiratory: No respiratory distress. Clear and equal breath sounds bilaterally. Cardiovascular: Regular rate and rhythm. Abdominal: Suprapubic tenderness with palpation. No distension. Normal Bowel Sounds. Back: No gross abnormalities. Extremities: Moves all four extremities. Upper extremities: Normal inspection. Normal ROM. Lower extremities: Normal inspection. No edema. Normal ROM. Neurological: Normal cognition. AAOx4. Normal speech. Psychological: Normal affect. Normal Mood. Skin: Warm. Dry. Normal color. Course - Re-evaluation Re-evalutation: Patient with no acute findings on ultrasound. CT showing hemorrhagic ovarian cyst. Patient taking p.o. without difficulty. Want to discuss and reevaluate but patient had eloped. She is not . Vitals stable. No evidence for s evere loss of blood. Follow-up with [facility]. - Vital Signs Vital signs: Temp Pulse Resp BP Pulse Ox 98.5 F 91 16 149/94 H 100 02/25/20 16:03 02/25/20 15:41 02/25/20 15:41 02/25/20 15:41 02/25/20 15:41 - Laboratory Result Diagrams: 02/25/20 16:20 02/25/20 16:20 Laboratory results interpreted by me: 02/25/20 16:20 Sodium 136.9 L Discharge - Discharge Clinical Impression: Pelvic pain, Hemorrhagic cyst of left ovary Condition: Stable Disposition: ELOPED Instructions: Ovarian Cyst ([facility]), Pelvic Pain ([facility]) Prescriptions: Ketorolac Tromethamine [Toradol 10 mg Tablet] 10 mg PO Q8HP PRN #14 tablet PRN Reason: Referrals: AFUA MICHELLE DO [NO LOCAL MD] - Follow up as needed [facility] [Provider Group] - Follow up tomorrow I personally performed the services described in the documentation, reviewed and edited the documentation which was dictated to the scribe in my presence, and it accurately records my words and actions.
== END 2020-02-25 21:17 | disposition left against medical advice (07) ==
LOC: ER 15:37
DX: N83.202 Unspecified ovarian cyst, left side (principal); R10.2 Pelvic and perineal pain; R51 Headache; F17.210 Nicotine dependence, cigarettes, uncomplicated; Z79.899 Other long term (current) drug therapy; Z53.20 Procedure and treatment not carried out because of patient's decision for unspecified reasons
CPT/HCPCS: 36415; 74176; 76856; 80053; 81001; 81025; 83690; 85025; 93976; 99284

== ENCOUNTER → 2020-06-20 | Outpatient (CLI) | payer MEDICAID ==
--- NOTE | 2020-06-20 18:24 | EKG REPORT ---
SEVERITY:- ABNORMAL ECG - SINUS RHYTHM MCKENZIE, CONSIDER BIATRIAL ABNORMALITIES : Confirmed by: Azam Meyer MD 20-Jun-2020 18:23:37
== END ==
LOC: OD 14:43
PROVIDERS: ATTEND Nurse Practitioner Family
DX: R00.2 Palpitations (principal)
CPT/HCPCS: 93005; 93010